=== PATIENT | female | born 1970 | race Hispanic/Latino ===

== ENCOUNTER 2017-01-05 21:45 | Inpatient (IN) | payer MEDICARE, OTHER ==
[2017-01-05] MEDS ORDERED: Sodium Chloride 0.9% 1,000 ML IV ONE (22:56)
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
[2017-01-05] MEDS ORDERED: Sodium Chloride 0.9% 1,000 ML ONE (23:29)
[2017-01-05 23:32] LABS: BASO # 0.1 K/uL (0.0-0.2); BASO % 0.8 % (0.0-2.0); EOS % 0.4 % (0.0-4.0); HEMATOCRIT 38.2 % (34.0-47.0); LYMPH % 29.5 % (20.0-40.0); MEAN CORPUSCULAR HEMOGLOBIN 27.1 pg (27.0-31.0); MEAN CORPUSCULAR HGB CONC 33.7 g/dL (33.0-37.0); MEAN PLATELET VOLUME 7.5 fL (7.2-11.7); MONO # 0.7 K/uL (0.0-0.8); RED CELL DISTRIBUTION WIDTH 13.7 % (11.5-14.5); WHITE BLOOD COUNT 10.1 K/uL (4.8-10.8)
[2017-01-05 23:39] LABS: MEAN CELL VOLUME 80.5 fL (81.0-99.0)
[2017-01-05 23:40] LABS: CHLORIDE 107 mmol/L (98-107)
[2017-01-05 23:41] LABS: POTASSIUM 3.6 mmol/L (3.6-5.2); SODIUM 139 mmol/L (132-148)
[2017-01-05 23:43] LABS: ALB/GLOB RATIO 1.2 (1.0-2.1); ALKALINE PHOSPHATASE 67 U/L (38-126); ALT/SGPT 11 U/L (9-52); AST/SGOT 17 U/L (14-36); BILIRUBIN,TOTAL 0.7 mg/dL (0.2-1.3); BLOOD UREA NITROGEN 19 mg/dL (7-17); CALCIUM 8.6 mg/dl (8.6-10.4); CARBON DIOXIDE 18 mmol/L (22-30); GFR AFRICAN-AMERICAN > 60; GLUCOSE,RANDOM 95 mg/dL (65-105); TOTAL PROTEIN 7.2 g/dL (6.3-8.3)
[2017-01-06 01:51] LABS: RBC URINE 2 /hpf (0-3); URINE BACTERIA OCC (<OCC); URINE BILIRUBIN NEGATIVE (NEGATIVE); URINE BLOOD NEGATIVE (NEGATIVE); URINE COLOR Yellow (YELLOW); URINE GLUCOSE (UA) NORMAL (Normal); URINE KETONE NEGATIVE (NEGATIVE); URINE LEUKOCYTE ESTERASE 1+ Leu/uL (Negative); URINE PROTEIN NEGATIVE (NEGATIVE); URINE UROBILINOGEN NORMAL mg/dL (0.2-1.0); WBC URINE 9 /hpf (0-5)
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
[2017-01-06] MEDS: buPROPion 150 mg/24 Hours XL Tab PO SCH (18:10)
[2017-01-07] MEDS: buPROPion 150 mg/24 Hours XL Tab PO SCH (10:42)
[2017-01-07 18:44] VITALS: O2SAT 98
[2017-01-08] MEDS: buPROPion 150 mg/24 Hours XL Tab PO SCH (09:54)
[2017-01-09] MEDS: buPROPion 150 mg/24 Hours XL Tab PO SCH (10:03)
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
[2017-01-10 08:07] VITALS: BP 125/74; PULSE 105; RESP 18; TEMP 97.5
[2017-01-10] MEDS: buPROPion 150 mg/24 Hours XL Tab PO SCH (09:26)
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
== END 2017-01-10 14:15 | disposition home or self-care (01) | DRG 885 ==
LOC: C.ER 21:45 → C.5E 01-06 04:21
PROVIDERS: ADMIT Psychiatry & Neurology Psychiatry; ATTEND Psychiatry & Neurology Psychiatry
PROC: GZ58ZZZ Individual Psychotherapy, Cognitive-Behavioral (ICD-10-PCS; principal; 2017-01-06)
PROC: GZ56ZZZ Individual Psychotherapy, Supportive (ICD-10-PCS; 2017-01-06)
DX: F33.2 Major depressive disorder, recurrent severe without psychotic features (principal); Z68.41 Body mass index [BMI] 40.0-44.9, adult; E66.9 Obesity, unspecified; Z59.0 Homelessness; F41.1 Generalized anxiety disorder

== ENCOUNTER 2017-02-05 00:21 | Observation (INO) | payer MEDICARE ==
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
[2017-02-05 05:27] VITALS: BP 124/58; PULSE 92; RESP 16; TEMP 98
[2017-02-05 06:24] VITALS: O2SAT 98
== END 2017-02-05 05:11 | disposition home or self-care (01) ==
LOC: C.ER 00:21 → C.9OBSV 03:46
PROVIDERS: ADMIT Internal Medicine; ATTEND Internal Medicine
DX: F41.8 Other specified anxiety disorders (principal)
CPT/HCPCS: 99284; G0378

== ENCOUNTER 2017-06-16 15:20 | Emergency (ER) | payer MEDICARE, SELFPAY ==
[2017-06-16 17:11] LABS: URINE BACTERIA RARE (<OCC); URINE BILIRUBIN NEGATIVE (NEGATIVE); URINE BLOOD NEGATIVE (NEGATIVE); URINE COLOR Yellow (YELLOW); URINE GLUCOSE (UA) NORMAL (Normal); URINE KETONE NEGATIVE (NEGATIVE); URINE LEUKOCYTE ESTERASE NEG Leu/uL (Negative); URINE PROTEIN NEGATIVE (NEGATIVE); URINE UROBILINOGEN NORMAL mg/dL (0.2-1.0); WBC URINE 2 /hpf (0-5)
[2017-06-16] MEDS ORDERED: Lidocaine 5% Patch TD STA (17:28)
[2017-06-16] MEDS ORDERED: Lidocaine 5% Patch TD ONE (17:33)
--- NOTE | 2017-06-16 17:38 | C.PDOC ---
History Of Present Illness Manda is a 47 y/o female who presents to the ED complaining of left lower back pain since yesterday, worsened since 3PM today. Pain radiates from sacral to lumbar spine. No injury or trauma to the area. Has had back pain in the past, which is usually right-sided and radiates down the leg, but unlike the current symptoms. No weakness or numbness, nausea, vomiting, chest pain, shortness of breath, hematuria, or dysuria. Patient reports having stress incontinence of the bladder, which is chronic and unchanged. PMD: Jaja Burton Time Seen by Provider: 06/16/17 16:48 Chief Complaint (Nursing): Back Pain History Per: Patient History/Exam Limitations: no limitations Onset/Duration Of Symptoms: Days (x2) Current Symptoms Are (Timing): Still Present Past Medical History Reviewed: Historical Data, Nursing Documentation, Vital Signs Vital Signs: Last Vital Signs Temp 97.6 F 06/16/17 15:42 Pulse 86 06/16/17 15:42 Resp 18 06/16/17 15:42 BP 119/82 06/16/17 15:42 Pulse Ox 100 06/16/17 17:56 - Medical History PMH: Anxiety, Depression, Pneumonia Denies: Anemia, Diabetes, Hepatitis, HIV, HTN, Chronic Kidney Disease, Seizures, Sickle Cell Disease, Sexually Transmitted Disease Other Surgeries: Cystoscopy - [facility] Procedures INDIVIDUAL PSYCHOTHERAPY, COGNITIVE-BEHAVIORAL (01/06/17) INDIVIDUAL PSYCHOTHERAPY, SUPPORTIVE (01/06/17) INJECT/INFUSE NEC (07/22/04) Family History: States: Unknown Family Hx - Social History Hx Tobacco Use: No Hx Alcohol Use: No Hx Substance Use: No - Immunization History Hx Tetanus Toxoid Vaccination: No Hx Influenza Vaccination: No Hx Pneumococcal Vaccination: No Review Of Systems Except As Marked, All Systems Reviewed And Found Negative. Constitutional: Negative for: Fever Cardiovascular: Negative for: Chest Pain Respiratory: Negative for: Shortness of Breath Gastrointestinal: Negative for: Nausea, Vomiting, Diarrhea Genitourinary: Positive for: Incontinence (chronic per patient). Negative for: Dysuria, Hematuria Musculoskeletal: Positive for: Back Pain (left lower) Neurological: Negative for: Weakness, Numbness Physical Exam - Physical Exam Appears: Non-toxic, No Acute Distress Skin: Normal Color, Warm, Dry Head: Atraumatic, Normacephalic Eye(s): bilateral: Normal Inspection, PERRL, EOMI Nose: Normal Neck: Normal, No Midline Cervical Tenderness, No Step Off Deformity, Supple Chest: Symmetrical Cardiovascular: Rhythm Regular, No Murmur Respiratory: Normal Breath Sounds, No Accessory Muscle Use Gastrointestinal/Abdominal: Soft, No Tenderness Back: Normal Inspection, No CVA Tenderness, Muscle Spasm (Muscular tightness at left paralumbar region) Extremity: Normal ROM, No Pedal Edema, No Deformity, Other (Normal strength throughout) Neurological/Psych: Oriented x3, Normal Speech, Normal Motor, Normal Sensation ED Course And Treatment O2 Sat by Pulse Oximetry: 100 (RA) Pulse Ox Interpretation: Normal Progress Note: Ordered urine preg and urinalysis. Patient given Motrin, Tylenol , Valium, and Lidocaine patch. Pending reassessment. Disposition Counseled Patient/Family Regarding: Diagnosis, Need For Followup, Rx Given - Disposition Referrals: [facility] [Outside] Disposition: HOME/ ROUTINE Disposition Time: 18:22 Condition: STABLE Prescriptions: Ibuprofen [Motrin] 600 mg PO TID #15 tab Lidocaine 5% [Lidoderm] 1 ea TD DAILY #1 patch Instructions: Back Pain (ED) Forms: [facility] (Bengali), General Discharge Instructions - Clinical Impression Clinical Impression: Low back pain - Scribe Statement The provider has reviewed the documentation as recorded by the Scribrobbin Smalls All medical record entries made by the Scribe were at my direction and personally dictated by me. I have reviewed the chart and agree that the record accurately reflects my personal performance of the history, physical exam, medical decision making, and the department course for this patient. I have also personally directed, reviewed, and agree with the discharge instructions and disposition.
[2017-06-16 18:35] VITALS: BP 106/72; PULSE 87; RESP 20; TEMP 97.5; O2SAT 98
== END 2017-06-16 18:51 | disposition home or self-care (01) ==
LOC: C.ER 15:20
DX: M54.5 Low back pain (principal)

== ENCOUNTER 2017-10-28 21:05 | Emergency (ER) | payer MEDICARE ==
[2017-10-28 21:15] VITALS: O2SAT 97
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
[2017-10-28 21:52] VITALS: BP 130/90; PULSE 74; RESP 14; TEMP 97.8
== END 2017-10-28 21:51 | disposition home or self-care (01) ==
LOC: C.ER 21:05
DX: S09.90XA Unspecified injury of head, initial encounter (principal); Y04.0XXA Assault by unarmed brawl or fight, initial encounter

== ENCOUNTER 2018-03-05 10:53 | Emergency (ER) | payer MEDICARE, SELFPAY ==
[2018-03-05 11:08] VITALS: RESP 18
[2018-03-05 11:39] VITALS: O2SAT 96
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
[2018-03-05 13:43] LABS: SQUAMOUS EPITHIAL 16 /hpf (0-5); URINE BACTERIA RARE (<OCC); URINE BILIRUBIN NEGATIVE (NEGATIVE); URINE BLOOD NEGATIVE (NEGATIVE); URINE CLARITY Hazy (Clear); URINE COLOR Yellow (YELLOW); URINE GLUCOSE (UA) NORMAL (Normal); URINE LEUKOCYTE ESTERASE 1+ Leu/uL (Negative); URINE PROTEIN 1+ mg/dL (NEGATIVE); URINE UROBILINOGEN NORMAL mg/dL (0.2-1.0)
[2018-03-05] MEDS ORDERED: cefTRIAXone (Rocephin) 250 mg Inj IM STA (14:38)
[2018-03-05 14:58] VITALS: BP 112/75; PULSE 89; TEMP 97.9
== END 2018-03-05 15:20 | disposition home or self-care (01) ==
LOC: C.ER 10:53
DX: N39.0 Urinary tract infection, site not specified (principal)
CPT/HCPCS: 81001; 87086; 87491; 87591; 96372; 99285; J0696

== ENCOUNTER 2018-03-27 12:47 | Emergency (ER) | payer MEDICARE, SELFPAY ==
[2018-03-27 12:53] VITALS: BMI 33.7
[2018-03-27 12:57] VITALS: TEMP 98.7
[2018-03-27 14:31] LABS: HCG,QUALITATIVE URINE NEGATIVE (NEGATIVE)
[2018-03-27 15:16] LABS: URINE BILIRUBIN NEGATIVE (NEGATIVE); URINE BLOOD NEGATIVE (NEGATIVE); URINE CLARITY Hazy (Clear); URINE COLOR YELLOW (YELLOW); URINE GLUCOSE (UA) NORMAL (Normal)
[2018-03-27 15:17] LABS: SQUAMOUS EPITHIAL 17 /hpf (0-5); URINE BACTERIA RARE (<OCC); URINE HYALINE CAST 0 - 2 /lpf (0-2); URINE LEUKOCYTE ESTERASE 2+ Leu/uL (Negative); URINE PROTEIN 1+ mg/dL (NEGATIVE); URINE UROBILINOGEN NORMAL mg/dL (0.2-1.0)
[2018-03-27 15:25] VITALS: BP 129/63; PULSE 86; RESP 20; O2SAT 94
--- NOTE | 2018-03-27 15:25 | C.PDOC ---
Time Seen by Provider: 03/27/18 13:43 Chief Complaint (Nursing): Female Genitourinary History Per: Patient Onset/Duration Of Symptoms: Days (1) Current Symptoms Are (Timing): Still Present Severity: Moderate Location Of Pain/Discomfort: Suprapubic Quality Of Discomfort: Unable To Describe Associated Symptoms: Urinary Symptoms Alleviating Factors: None Additional History Per: Prior Records Abnormal Vaginal Bleeding: No Past Medical History Reviewed: Historical Data, Nursing Documentation, Vital Signs Vital Signs: Last Vital Signs Temp 98.7 F 03/27/18 12:53 Pulse 106 H 03/27/18 12:53 Resp 18 03/27/18 12:53 BP 121/90 03/27/18 12:53 Pulse Ox 94 L 03/27/18 12:53 - Medical History PMH: Anxiety, Asthma, Depression, Pneumonia Surgical History: No Surg Hx - [facility] Procedures GROUP PSYCHOTHERAPY (01/12/18) INDIVIDUAL PSYCHOTHERAPY, COGNITIVE-BEHAVIORAL (01/12/18) INDIVIDUAL PSYCHOTHERAPY, SUPPORTIVE (01/12/18) INJECT/INFUSE NEC (07/22/04) Family History: States: Unknown Family Hx - Social History Hx Tobacco Use: No Hx Alcohol Use: No Hx Substance Use: No - Immunization History Hx Tetanus Toxoid Vaccination: No Hx Influenza Vaccination: No Hx Pneumococcal Vaccination: No Review Of Systems Except As Marked, All Systems Reviewed And Found Negative. Constitutional: Negative for: Fever, Weakness Cardiovascular: Negative for: Chest Pain Respiratory: Negative for: Shortness of Breath Gastrointestinal: Negative for: Vomiting, Diarrhea Genitourinary: Positive for: Frequency (and urgency). Negative for: Vaginal Discharge Musculoskeletal: Negative for: Neck Pain, Back Pain Skin: Negative for: Rash Neurological: Negative for: Weakness, Numbness Physical Exam - Physical Exam Appears: Non-toxic, No Acute Distress Skin: Normal Color, Warm, Dry Head: Atraumatic, Normacephalic Eye(s): bilateral: PERRL, EOMI Oral Mucosa: Moist Neck: Normal ROM, Supple Cardiovascular: Rhythm Regular Respiratory: Normal Breath Sounds, No Accessory Muscle Use Gastrointestinal/Abdominal: Soft, No Tenderness Back: No CVA Tenderness Extremity: Normal ROM Neurological/Psych: Oriented x3, Normal Motor, Normal Sensation ED Course And Treatment - Laboratory Results Interpretation Of Abnormal: UTI Urine POC: Negative O2 Sat by Pulse Oximetry: 94 Disposition Counseled Patient/Family Regarding: Studies Performed, Diagnosis, Need For Followup, Rx Given - Disposition Referrals: Jaja Burton MD [Medical Doctor] - Disposition: HOME/ ROUTINE Disposition Time: 15:24 Condition: STABLE Additional Instructions: Drink plenty of fluids. Follow up with your doctor. Return to the ER if you develop fever, chills, back pain, vomiting, worsening of symptoms or if you have any other concerns. Prescriptions: Nitrofurantoin Macrocrystals [Macrobid] 1 cap PO BID #14 cap Phenazopyridine HCl [Pyridium] 200 mg PO TID PRN #6 tablet PRN Reason: Urinary Discomt Instructions: Acute Cystitis (DC) Forms: [employer] (Andorran) - Clinical Impression Clinical Impression: UTI (urinary tract infection)
== END 2018-03-27 15:37 | disposition home or self-care (01) ==
LOC: C.ER 12:47
DX: N39.0 Urinary tract infection, site not specified (principal)

== ENCOUNTER 2018-05-24 07:31 | Emergency (ER) | payer MEDICARE, SELFPAY ==
[2018-05-24 07:37] VITALS: BMI 38.7
[2018-05-24 07:54] VITALS: BP 132/87; PULSE 98; RESP 18; TEMP 97.7; O2SAT 98
--- NOTE | 2018-05-24 08:00 | C.PDOC ---
History Of Present Illness 47 year old female presents to ED for evaluation of gradual development of right wrist pain. 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 She reports pain with movement of her right thumb. She is right hand dominant. Denies injury, trauma, heavy lifting, weakness, numbness, change in sensation, swelling, or redness. Chief Complaint (Nursing): Upper Extremity Problem/Injury History Per: Patient History/Exam Limitations: no limitations Onset/Duration Of Symptoms: Days, Gradual Current Symptoms Are (Timing): Still Present Quality: "Pain" Exacerbating Factor(s): Strenuous Use Of Affected Area, Movement Recent travel outside of the [place]: No Additional History Per: Patient Past Medical History Reviewed: Historical Data, Nursing Documentation, Vital Signs Vital Signs: Last Vital Signs Temp 97.7 F 05/24/18 07:37 Pulse 98 H 05/24/18 07:37 Resp 18 05/24/18 07:37 BP 132/87 05/24/18 07:37 Pulse Ox 98 05/24/18 07:37 - Medical History PMH: Anxiety, Asthma, Depression, Pneumonia, Chronic Kidney Disease - [facility] Procedures GROUP PSYCHOTHERAPY (04/23/18) INDIVIDUAL PSYCHOTHERAPY, COGNITIVE-BEHAVIORAL (04/23/18) INDIVIDUAL PSYCHOTHERAPY, SUPPORTIVE (01/12/18) INJECT/INFUSE NEC (07/22/04) Family History: States: Unknown Family Hx - Social History Hx Tobacco Use: No Hx Alcohol Use: No Hx Substance Use: No - Immunization History Hx Tetanus Toxoid Vaccination: No Hx Influenza Vaccination: No Hx Pneumococcal Vaccination: Yes (2015) Review Of Systems Except As Marked, All Systems Reviewed And Found Negative. Constitutional: Negative for: Fever, Chills Musculoskeletal: Positive for: Hand Pain (right wrist) Skin: Negative for: Rash, Bruising Neurological: Negative for: Weakness, Numbness Physical Exam - Physical Exam Appears: Non-toxic, No Acute Distress Skin: Normal Color, Warm, Dry Head: Atraumatic, Normacephalic Eye(s): bilateral: Normal Inspection Oral Mucosa: Moist Neck: Normal ROM, Supple Extremity: No Normal ROM (Pain to right wrist with flexion and movement of the thumb), Tenderness (mild tenderness to radial aspect of right wrist and thenar eminence), Capillary Refill (less than 2 seconds), No Deformity, No Swelling Extremity: Bilateral: Normal Color And Temperature Pulses: Right Radial: Normal Neurological/Psych: Oriented x3, Normal Speech, Normal Sensation ED Course And Treatment O2 Sat by Pulse Oximetry: 98 (RA) Pulse Ox Interpretation: Normal Medical Decision Making Medical Decision Making: Impression: right wrist pain without injury, no clinical indication for xray at this time. Plan: * Motrin * Wrist splint Recommend splint for support/immobilization and NSAIDs. Advise follow up with ortho if pain persist Disposition Counseled Patient/Family Regarding: Diagnosis, Need For Followup, Rx Given - Disposition Referrals: Cheko Henry MD [Staff Provider] - Disposition: HOME/ ROUTINE Disposition Time: 08:00 Condition: GOOD Additional Instructions: Wear the wrist support for at least one week, to keep area immobilized and supported. Please apply ice to area 15 minutes three times a day. Take Motrin as needed for pain every 6 hours, with food to not upset stomach. Follow up with orthopedic if pain persists over one week. 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 - Scribe Statement The provider has reviewed the documentation as recorded by the Scribe Susanne Anna All medical record entries made by the Scribe were at my direction and personally dictated by me. I have reviewed the chart and agree that the record accurately reflects my personal performance of the history, physical exam, medical decision making, and the department course for this patient. I have also personally directed, reviewed, and agree with the discharge instructions and disposition.
== END 2018-05-24 08:11 | disposition home or self-care (01) ==
LOC: C.ER 07:31
DX: M77.8 Other enthesopathies, not elsewhere classified (principal)